=== PATIENT | male | born 2000 | race Caucasian/White ===

== ENCOUNTER 2019-07-10 07:18 | Emergency (ER) | payer OTHER ==
--- NOTE | 2019-07-10 07:30 | NUR ---
CALLED PT FOR CHRISTY SANDSONE IN LOBBY. PATIENT LEFT WITHOUT BEING SEEN BY DR. WHEELER. NO FURTHER CARE PROVIDED FOR PATIENT.
== END 2019-07-10 07:30 | disposition left against medical advice (07) ==
LOC: MED 07:18
DX: Z53.21 Procedure and treatment not carried out due to patient leaving prior to being seen by health care provider (principal)